=== PATIENT | male | born 1945 | race African-American/Black ===

== ENCOUNTER → 2016-08-13 | Outpatient (CLI) | payer MEDICARE, OTHER ==
[~2016-08-13] MED LIST: ADVAI100I PO; AMLO5TAB22 PO; ATOR40TA49 PO; AZIT250T43 PO; DUONI NEB; HYDR25TA35 PO; IPRAAER IN; PRED20 PO; SYMB160A INH; UMEC1AER INH; VENTAER INH
[2016-08-13 11:02] LABS: AUTOMATED NEUTROPHIL # 7.8 TH/MM3 (1.8-7.7); BASOPHIL % 0.3 % (0.0-2.0); EOSINOPHIL # 0.1 TH/MM3 (0-0.4); HEMATOCRIT 47.6 % (39.0-51.0); LYMPH % 13.8 % (9.0-44.0); LYMPHOCYTE # 1.4 TH/MM3 (1.0-4.8); MEAN CELL VOLUME 73.1 FL (80.0-100.0); MEAN CORPUSCULAR HEMOGLOBIN 22.5 PG (27.0-34.0); MEAN CORPUSCULAR HGB CONC 30.8 % (32.0-36.0); MONO % 8.9 % (0.0-8.0); PLATELET COUNT 145 TH/MM3 (150-450); RED BLOOD COUNT 6.51 MIL/MM3 (4.50-5.90); RED CELL DISTRIBUTION WIDTH 15.8 % (11.6-17.2); WHITE BLOOD COUNT 10.3 TH/MM3 (4.0-11.0)
[2016-08-13 11:07] LABS: HEMO FLAGS AUTO DIFF
[2016-08-13 11:52] LABS: EOSINOPHILS 1 % (0-4); NEUTROPHIL # MANUAL DIFF 8.3 TH/MM3 (1.8-7.7); POLYS (SEG NEUTROPHILS) 81 % (16-70); WBC DIFF SAMPLE 100
[2016-08-13 11:53] LABS: PLATELET ESTIMATE SMEAR LOW (NORMAL); PLATELET MORPHOLOGY NORMAL (NORMAL); SCAN/DIFF FINAL DIFF MANUAL
[2016-08-13 11:59] LABS: ALKALINE PHOSPHATASE 94 U/L (45-117); ALT (GPT) 28 U/L (12-78); ANION GAP 5 MEQ/L (5-15); AST (GOT) 17 U/L (15-37); BICARBONATE 30.7 MEQ/L (21.0-32.0); BLOOD UREA NITROGEN 16 MG/DL (7-18); CHLORIDE 108 MEQ/L (98-107); GLOMERULAR FILTRATION RATE 57 ML/MIN (>89); GLUCOSE,FASTING 108 MG/DL (74-99); HDL CHOLESTEROL 29.8 MG/DL (40.0-60.0); LDL CHOLESTEROL 18 MG/DL (0-99); SODIUM (NA) 144 MEQ/L (136-145); TOTAL BILIRUBIN ADULT 0.4 MG/DL (0.2-1.0)
== END ==
LOC: CLAB 10:31
PROVIDERS: ATTEND Internal Medicine Cardiovascular Disease
DX: E78.5 Hyperlipidemia, unspecified (principal); Z01.01 Encounter for examination of eyes and vision with abnormal findings; E78.00 Pure hypercholesterolemia, unspecified; D51.9 Vitamin B12 deficiency anemia, unspecified; D52.9 Folate deficiency anemia, unspecified
CPT/HCPCS: 36415; 80053; 80061; 82607; 82746; 85007; 85027

== ENCOUNTER → 2016-09-13 | Outpatient (CLI) | payer MEDICARE, OTHER ==
[2016-09-13 09:12] LABS: BICARBONATE 32.1 MEQ/L (21.0-32.0); POTASSIUM 3.8 MEQ/L (3.5-5.1)
== END ==
LOC: CLAB 08:21
PROVIDERS: ATTEND Family Medicine
DX: R73.09 Other abnormal glucose (principal); Z79.891 Long term (current) use of opiate analgesic
CPT/HCPCS: 36415; 80048

== ENCOUNTER → 2016-11-09 | Outpatient (CLI) | payer MEDICARE, OTHER ==
[2016-11-09 08:12] LABS: ALT (GPT) 22 U/L (12-78)
[2016-11-09 08:14] LABS: ALKALINE PHOSPHATASE 74 U/L (45-117); HDL CHOLESTEROL 27.3 MG/DL (40.0-60.0); LDL CHOLESTEROL 28 MG/DL (0-99); TOTAL BILIRUBIN ADULT 0.5 MG/DL (0.2-1.0)
[2016-11-09 08:45] LABS: ANION GAP 9 MEQ/L (5-15); AST (GOT) 18 U/L (15-37); BICARBONATE 26.3 MEQ/L (21.0-32.0); BLOOD UREA NITROGEN 10 MG/DL (7-18); CHLORIDE 109 MEQ/L (98-107); GLOMERULAR FILTRATION RATE 64 ML/MIN (>89); GLUCOSE,FASTING 103 MG/DL (74-99); POTASSIUM 3.7 MEQ/L (3.5-5.1); SODIUM (NA) 144 MEQ/L (136-145)
== END ==
LOC: CLAB 07:27
PROVIDERS: ATTEND Family Medicine
DX: E78.5 Hyperlipidemia, unspecified (principal); E78.00 Pure hypercholesterolemia, unspecified; Z01.00 Encounter for examination of eyes and vision without abnormal findings; Z79.891 Long term (current) use of opiate analgesic
CPT/HCPCS: 36415; 80053; 80061

== ENCOUNTER → 2017-01-07 | Outpatient (CLI) | payer MEDICARE, OTHER ==
[2017-01-07 15:09] LABS: AUTOMATED NEUTROPHIL # 7.5 TH/MM3 (1.8-7.7); BASOPHIL % 0.2 % (0.0-2.0); EOSINOPHIL % 0.3 % (0.0-4.0); HEMATOCRIT 49.2 % (39.0-51.0); HEMO FLAGS DIFF FINAL; LYMPH % 11.4 % (9.0-44.0); LYMPHOCYTE # 1.1 TH/MM3 (1.0-4.8); MEAN CELL VOLUME 73.4 FL (80.0-100.0); MEAN CORPUSCULAR HEMOGLOBIN 23.3 PG (27.0-34.0); MEAN CORPUSCULAR HGB CONC 31.8 % (32.0-36.0); MONO % 9.8 % (0.0-8.0); NEUT % 78.3 % (16.0-70.0); PLATELET COUNT 165 TH/MM3 (150-450); RED BLOOD COUNT 6.71 MIL/MM3 (4.50-5.90); RED CELL DISTRIBUTION WIDTH 17.1 % (11.6-17.2); WHITE BLOOD COUNT 9.6 TH/MM3 (4.0-11.0)
[2017-01-07 15:26] LABS: ANION GAP 10 MEQ/L (5-15); AST (GOT) 15 U/L (15-37); BICARBONATE 26.6 MEQ/L (21.0-32.0); BLOOD UREA NITROGEN 34 MG/DL (7-18); CHLORIDE 103 MEQ/L (98-107); GLOMERULAR FILTRATION RATE 46 ML/MIN (>89); GLUCOSE,FASTING 131 MG/DL (74-99); POTASSIUM 3.9 MEQ/L (3.5-5.1); SODIUM (NA) 140 MEQ/L (136-145)
[2017-01-07 15:28] LABS: RHEUMATOID FACTOR TRIGGER LESS THAN 10.0 IU/ML (0.0-14.9)
[2017-01-07 15:50] LABS: WESTERGREN SEDIMENTATION RATE 1 mm/hr (0-20)
[2017-01-07 15:51] LABS: ALKALINE PHOSPHATASE 86 U/L (45-117); ALT (GPT) 33 U/L (12-78); CREATINE KINASE 165 U/L (39-308); HDL CHOLESTEROL 35.1 MG/DL (40.0-60.0); LDL CHOLESTEROL 50 MG/DL (0-99); TOTAL BILIRUBIN ADULT 0.5 MG/DL (0.2-1.0)
[2017-01-07 17:29] LABS: HEMOGLOBIN A1a 1.7 %; HEMOGLOBIN Ao 83.2 %; HEMOGLOBIN F 1.1 %; HEMOGLOBIN LA1C 2.2 %; HEMOGLOBIN P3 4.1 %
== END ==
LOC: CLAB 14:28
PROVIDERS: ATTEND Family Medicine
DX: E78.5 Hyperlipidemia, unspecified (principal); E78.00 Pure hypercholesterolemia, unspecified; D52.9 Folate deficiency anemia, unspecified; E03.9 Hypothyroidism, unspecified; D56.5 Hemoglobin E-beta thalassemia; E11.9 Type 2 diabetes mellitus without complications; Z79.891 Long term (current) use of opiate analgesic; Z01.01 Encounter for examination of eyes and vision with abnormal findings
CPT/HCPCS: 36415; 80053; 80061; 82550; 82607; 82746; 83036; 84443; 85025; 85652; 86430

== ENCOUNTER → 2017-01-20 | Outpatient (CLI) | payer MEDICARE, MEDICAID ==
[2017-01-20 11:54] LABS: BICARBONATE 28.2 MEQ/L (21.0-32.0); POTASSIUM 4.1 MEQ/L (3.5-5.1)
== END ==
LOC: CLAB 10:40
PROVIDERS: ATTEND Family Medicine
DX: R73.09 Other abnormal glucose (principal); N19 Unspecified kidney failure; Z79.891 Long term (current) use of opiate analgesic
CPT/HCPCS: 36415; 80048

== ENCOUNTER → 2017-03-31 | Outpatient (CLI) | payer MEDICARE, MEDICAID ==
[2017-03-31 10:31] LABS: ALBUMIN 3.8 GM/DL (3.4-5.0); BICARBONATE 27.3 MEQ/L (21.0-32.0); BLOOD UREA NITROGEN 17 MG/DL (7-18); CALCIUM 8.9 MG/DL (8.5-10.1); CHLORIDE 104 MEQ/L (98-107); CHOLESTEROL 86 MG/DL (120-200); CREATININE 1.37 MG/DL (0.60-1.30); GLOMERULAR FILTRATION RATE 62 ML/MIN (>89); GLUCOSE,FASTING 86 MG/DL (74-99); SODIUM (NA) 141 MEQ/L (136-145)
[2017-03-31 10:46] LABS: ALKALINE PHOSPHATASE 72 U/L (45-117); ALT (GPT) 26 U/L (12-78); AST (GOT) 20 U/L (15-37); CHOLESTEROL/ HDL RATIO 2.73 RATIO; HDL CHOLESTEROL 31.5 MG/DL (40.0-60.0); LDL CHOLESTEROL 35 MG/DL (0-99); TOTAL BILIRUBIN ADULT 0.5 MG/DL (0.2-1.0); TOTAL PROTEIN 7.8 GM/DL (6.4-8.2); TRIGLYCERIDES 98 MG/DL (42-150)
== END ==
LOC: CLAB 08:27
PROVIDERS: ATTEND Family Medicine
DX: E78.00 Pure hypercholesterolemia, unspecified (principal); I10 Essential (primary) hypertension; E78.5 Hyperlipidemia, unspecified; E11.9 Type 2 diabetes mellitus without complications; Z79.891 Long term (current) use of opiate analgesic
CPT/HCPCS: 36415; 80053; 80061

== ENCOUNTER → 2017-05-24 | Outpatient (CLI) | payer MEDICARE, MEDICAID ==
[2017-05-24 08:38] LABS: AUTOMATED NEUTROPHIL # 3.5 TH/MM3 (1.8-7.7); BASOPHIL % 0.5 % (0.0-2.0); EOSINOPHIL % 4.2 % (0.0-4.0); HEMATOCRIT 48.2 % (39.0-51.0); HEMO FLAGS DIFF FINAL; LYMPH % 21.3 % (9.0-44.0); LYMPHOCYTE # 1.2 TH/MM3 (1.0-4.8); MEAN CELL VOLUME 74.3 FL (80.0-100.0); MEAN CORPUSCULAR HEMOGLOBIN 24.1 PG (27.0-34.0); MEAN CORPUSCULAR HGB CONC 32.4 % (32.0-36.0); MONO % 13.8 % (0.0-8.0); NEUT % 60.2 % (16.0-70.0); PLATELET COUNT 197 TH/MM3 (150-450); RED BLOOD COUNT 6.48 MIL/MM3 (4.50-5.90); RED CELL DISTRIBUTION WIDTH 15.7 % (11.6-17.2); WHITE BLOOD COUNT 5.8 TH/MM3 (4.0-11.0)
[2017-05-24 08:39] LABS: EOSINOPHIL # 0.2 TH/MM3 (0-0.4)
[2017-05-24 09:02] LABS: ALT (GPT) 20 U/L (12-78)
[2017-05-24 09:04] LABS: ALKALINE PHOSPHATASE 75 U/L (45-117); ANION GAP 10 MEQ/L (5-15); AST (GOT) 28 U/L (15-37); BICARBONATE 29.5 MEQ/L (21.0-32.0); BLOOD UREA NITROGEN 22 MG/DL (7-18); CHLORIDE 101 MEQ/L (98-107); GLOMERULAR FILTRATION RATE 38 ML/MIN (>89); GLUCOSE,FASTING 145 MG/DL (74-99); LDL CHOLESTEROL 27 MG/DL (0-99); SODIUM (NA) 140 MEQ/L (136-145); TOTAL BILIRUBIN ADULT 0.8 MG/DL (0.2-1.0)
[2017-05-24 09:05] LABS: POTASSIUM 3.6 MEQ/L (3.5-5.1)
== END ==
LOC: CLAB 07:52
PROVIDERS: ATTEND Family Medicine
DX: D64.9 Anemia, unspecified (principal); I10 Essential (primary) hypertension; E78.5 Hyperlipidemia, unspecified; Z12.5 Encounter for screening for malignant neoplasm of prostate
CPT/HCPCS: 36415; 80053; 80061; 84153; 85025

== ENCOUNTER → 2017-05-27 | Outpatient (CLI) | payer MEDICARE, MEDICAID ==
[2017-05-27 10:49] LABS: BICARBONATE 30.3 MEQ/L (21.0-32.0); BLOOD UREA NITROGEN 18 MG/DL (7-18); CALCIUM 9.7 MG/DL (8.5-10.1); CHLORIDE 102 MEQ/L (98-107); CREATININE 1.96 MG/DL (0.60-1.30); GLOMERULAR FILTRATION RATE 41 ML/MIN (>89); GLUCOSE,FASTING 141 MG/DL (74-99); SODIUM (NA) 141 MEQ/L (136-145)
== END ==
LOC: CLAB 09:47
PROVIDERS: ATTEND Family Medicine
DX: I12.9 Hypertensive chronic kidney disease with stage 1 through stage 4 chronic kidney disease, or unspecified chronic kidney disease (principal); N18.9 Chronic kidney disease, unspecified; D56.5 Hemoglobin E-beta thalassemia; Z79.891 Long term (current) use of opiate analgesic; Z12.5 Encounter for screening for malignant neoplasm of prostate
CPT/HCPCS: 36415; 80048; 83036; 84153

== ENCOUNTER → 2017-06-02 | Outpatient (CLI) | payer MEDICARE, MEDICAID ==
[2017-06-02 10:31] LABS: AUTOMATED NEUTROPHIL # 9.7 TH/MM3 (1.8-7.7); BASOPHIL % 0.3 % (0.0-2.0); EOSINOPHIL # 0.1 TH/MM3 (0-0.4); EOSINOPHIL % 0.4 % (0.0-4.0); HEMATOCRIT 45.3 % (39.0-51.0); HEMOGLOBIN 14.6 GM/DL (13.0-17.0); LYMPH % 9.5 % (9.0-44.0); LYMPHOCYTE # 1.2 TH/MM3 (1.0-4.8); MEAN CELL VOLUME 74.5 FL (80.0-100.0); MEAN CORPUSCULAR HGB CONC 32.2 % (32.0-36.0); MEAN PLATELET VOLUME 7.9 FL (7.0-11.0); MONO % 11.7 % (0.0-8.0); MONOCYTE # 1.5 TH/MM3 (0-0.9); NEUT % 78.1 % (16.0-70.0); PLATELET COUNT 276 TH/MM3 (150-450); RED BLOOD COUNT 6.08 MIL/MM3 (4.50-5.90); RED CELL DISTRIBUTION WIDTH 15.7 % (11.6-17.2); WHITE BLOOD COUNT 12.5 TH/MM3 (4.0-11.0)
[2017-06-02 10:38] LABS: ALBUMIN 3.3 GM/DL (3.4-5.0); AST (GOT) 29 U/L (15-37); BLOOD UREA NITROGEN 20 MG/DL (7-18); CALCIUM 9.8 MG/DL (8.5-10.1); CHLORIDE 101 MEQ/L (98-107); CREATININE 1.74 MG/DL (0.60-1.30); GLOMERULAR FILTRATION RATE 47 ML/MIN (>89); GLUCOSE,FASTING 116 MG/DL (74-99); SODIUM (NA) 142 MEQ/L (136-145)
[2017-06-02 10:44] LABS: ALKALINE PHOSPHATASE 73 U/L (45-117); ALT (GPT) 39 U/L (12-78); TOTAL BILIRUBIN ADULT 0.2 MG/DL (0.2-1.0); TOTAL PROTEIN 7.1 GM/DL (6.4-8.2)
== END ==
LOC: CLAB 09:32
PROVIDERS: ATTEND Family Medicine
DX: R79.89 Other specified abnormal findings of blood chemistry (principal); D64.9 Anemia, unspecified; I10 Essential (primary) hypertension; Z79.01 Long term (current) use of anticoagulants; Z79.891 Long term (current) use of opiate analgesic; Z12.11 Encounter for screening for malignant neoplasm of colon
CPT/HCPCS: 36415; 80053; 82272; 85025

== ENCOUNTER → 2017-07-11 | Outpatient (CLI) | payer MEDICARE, MEDICAID ==
[2017-07-11 08:52] LABS: ALBUMIN 3.7 GM/DL (3.4-5.0); AST (GOT) 20 U/L (15-37); BICARBONATE 29.8 MEQ/L (21.0-32.0); BLOOD UREA NITROGEN 18 MG/DL (7-18); CALCIUM 9.3 MG/DL (8.5-10.1); CHLORIDE 102 MEQ/L (98-107); CREATININE 1.74 MG/DL (0.60-1.30); GLOMERULAR FILTRATION RATE 47 ML/MIN (>89); SODIUM (NA) 140 MEQ/L (136-145)
[2017-07-11 08:53] LABS: GLUCOSE,FASTING 94 MG/DL (74-99)
[2017-07-11 08:56] LABS: ALKALINE PHOSPHATASE 77 U/L (45-117); ALT (GPT) 18 U/L (12-78); TOTAL BILIRUBIN ADULT 0.6 MG/DL (0.2-1.0)
== END ==
LOC: CLAB 08:07
PROVIDERS: ATTEND Internal Medicine Gastroenterology
DX: R10.9 Unspecified abdominal pain (principal)
CPT/HCPCS: 36415; 80053

== ENCOUNTER → 2017-07-19 | Outpatient (CLI) | payer MEDICARE, MEDICAID ==
[~2017-07-19] MED LIST changes: +ADVA100A INH; +AMLO5 PO; +ASPI-183 PO; +HYDR-3799 PO; +LIPI40TA PO; +MEDR4PAK PO
[2017-07-19 08:25] LABS: ALBUMIN 3.8 GM/DL (3.4-5.0); AST (GOT) 16 U/L (15-37); BICARBONATE 30.4 MEQ/L (21.0-32.0); BLOOD UREA NITROGEN 12 MG/DL (7-18); CALCIUM 9.2 MG/DL (8.5-10.1); CHLORIDE 104 MEQ/L (98-107); CHOLESTEROL 81 MG/DL (120-200); CREATININE 1.54 MG/DL (0.60-1.30); GLOMERULAR FILTRATION RATE 54 ML/MIN (>89); GLUCOSE,FASTING 101 MG/DL (74-99); SODIUM (NA) 141 MEQ/L (136-145)
[2017-07-19 08:30] LABS: ALKALINE PHOSPHATASE 88 U/L (45-117); ALT (GPT) 17 U/L (12-78); HDL CHOLESTEROL 28.9 MG/DL (40.0-60.0); LDL CHOLESTEROL 25 MG/DL (0-99); TOTAL BILIRUBIN ADULT 0.5 MG/DL (0.2-1.0); TOTAL PROTEIN 8.4 GM/DL (6.4-8.2); TRIGLYCERIDES 137 MG/DL (42-150); TROPONIN I LESS THAN 0.02 NG/ML (0.02-0.05)
== END ==
LOC: CLAB 07:40
PROVIDERS: ATTEND Family Medicine
DX: R10.84 Generalized abdominal pain (principal); I10 Essential (primary) hypertension; G89.4 Chronic pain syndrome; Z79.891 Long term (current) use of opiate analgesic
CPT/HCPCS: 36415; 80053; 80061; 84484

== ENCOUNTER 2017-07-21 16:22 | Emergency (ER) | payer MEDICARE, MEDICAID ==
[~2017-07-21] VITALS: Ht 185.4 cm; Wt 85.0 kg
[~2017-07-21 16:22] MED LIST changes: -ADVA100A INH; -AMLO5 PO; -ASPI-183 PO; -HYDR-3799 PO; -LIPI40TA PO; -MEDR4PAK PO
[2017-07-21 16:24] VITALS: BP 149/94; PULSE 97; RESP 20; TEMP 100.5; O2SAT 95
--- NOTE | 2017-07-21 17:15 | RADRPT ---
EXAM DATE/TIME: 07/21/2017 17:07 [place] COMPARISON: CHEST SINGLE AP, March 29, 2015, 15:09. INDICATIONS : Cough and flu like symptoms for 1 week. MEDICAL HISTORY : Hypertension. Chronic obstructive pulmonary disease. Carcinoma, prostatic. CVA. SURGICAL HISTORY : Cardiac cath. ENCOUNTER: Initial ACUITY: 1 week PAIN SCORE: 0/10 LOCATION: Bilateral chest FINDINGS: PA and lateral views of the chest demonstrate the lungs to be symmetrically aerated without evidence of mass, infiltrate or effusion. Mild prominence of the bronchopulmonary markings in the posterior l eft lower lung is unchanged from prior examination in 2014. The cardiomediastinal contours are unrem arkable. Osseous structures are intact. CONCLUSION: No focal infiltrates seen. Duane Fuentes MD on July 21, 2017 at 17:13 Board Certified Radiologist. This report was verified electronically.
[2017-07-22] MEDS ORDERED: ADVA100A INH (08:29)
[2017-07-22] MEDS ORDERED: VENTAER INH (08:29)
[2017-07-22] MEDS ORDERED: HYDR-3799 PO (08:29)
[2017-07-22] MEDS ORDERED: ASPI-183 PO (08:29)
[2017-07-22] MEDS ORDERED: AMLO5 PO (08:29)
[2017-07-22] MEDS ORDERED: UMEC1AER INH (08:29)
[2017-07-22] MEDS ORDERED: LIPI40TA PO (08:29)
[2017-07-22] MEDS ORDERED: MEDR4PAK PO (10:19)
== END 2017-07-21 17:20 | disposition left against medical advice (07) ==
LOC: NED 16:22
DX: R09.89 Other specified symptoms and signs involving the circulatory and respiratory systems (principal)
CPT/HCPCS: 71046; 99283

== ENCOUNTER 2017-07-22 07:39 | Emergency (ER) | payer MEDICARE, MEDICAID ==
[~2017-07-22] VITALS: Ht 185.4 cm; Wt 81.5 kg
[2017-07-22 07:44] VITALS: BP 148/113; PULSE 108; RESP 22; TEMP 98.7; O2SAT 98
[2017-07-22] MEDS ORDERED: methylPREDNISolone SOD SUCC 125 MG/2 ML VIAL IV PUSH ONE (08:00)
[2017-07-22] MEDS ORDERED: SODIUM CHLOR 0.9% 1000 ML INJ 1,000 ML IV ONE (08:00)
[2017-07-22] MEDS ORDERED: RESP: ALBUTEROL 2.5 MG/IPRATROPIUM 0.5 MG NEB (SCH) INH ONE (08:00)
[2017-07-22] MEDS ORDERED: SODIUM CHLORIDE 0.9% FLUSH 10 ML FLUSH IVF PRN (08:00)
[2017-07-22] MEDS: RESP: ALBUTEROL 2.5 MG/3 ML NEB (SCH) INH (08:12)
[2017-07-22 08:25] VITALS: RESP 18; O2SAT 98
[2017-07-22] MEDS ORDERED: ASPI-183 PO (08:29)
[2017-07-22] MEDS ORDERED: LIPI40TA PO (08:29)
[2017-07-22] MEDS ORDERED: AMLO5 PO (08:29)
[2017-07-22] MEDS ORDERED: HYDR-3799 PO (08:29)
[2017-07-22] MEDS ORDERED: VENTAER INH (08:29)
[2017-07-22] MEDS ORDERED: ADVA100A INH (08:29)
[2017-07-22] MEDS ORDERED: UMEC1AER INH (08:29)
--- NOTE | 2017-07-22 08:37 | PD ---
HPI Chief Complaint: Respiratory Symptoms Time Seen by Provider: 07:59 Travel History International Travel<30 days: No Contact w/Intl Traveler<30days: No Traveled to known affect area: No History of Present Illness HPI 72 there are no other complaints at the time of my examination.-year-old male with history of COPD, presents today with complaints of shortness of breath decreased appetite. Patient denies any fevers, chills. He states he had a chest x-ray yesterday because there was concern that he may have had a long finding. He denies any productive cough. He denies chest pain, chest pressure. He states that he has had wheezing. PFSH Past Medical History Cancer: Yes (prostate) Cardiac Catheterization: Yes (stent) Cardiovascular Problems: Yes High Cholesterol: Yes COPD: Yes Cerebrovascular Accident: Yes Hypertension: Yes Respiratory: Yes Radiation Therapy: Yes Social History Alcohol Use: No Tobacco Use: No Substance Use: No Allergies-Medications (Allergen,Severity, Reaction): Coded Allergies: No Known Allergies (Unverified , 03/29/15) Reported Meds & Prescriptions Reported Meds & Active Scripts Active Medrol Dosepak (Methylprednisolone) 4 Mg Dspk 4 Mg PO DIRECTED Per Pharmacist direction Reported Aspirin 325 Mg Tab 325 Mg PO DAILY Anoro Ellipta Inh (Umeclidinium/Vilanterol) 62.5-25 Mcg/Act Aero 1 Puff INH DAILY Hydralazine HCl 25 Mg Tablet 25 Mg PO BID Advair Diskus Inh (Fluticasone-Salmeterol Inh) 100-50 Mcg/Blist Aer 1 Puff INH BID Rinse mouth after use. Lipitor (Atorvastatin Calcium) 40 Mg Tab 40 Mg PO HS Norvasc (Amlodipine Besylate) 5 Mg Tab 5 Mg PO DAILY Ventolin Hfa 18 GM Inh (Albuterol Sulfate) 90 Mcg/Act Aer 2 Puff INH Q4-6H PRN Review of Systems Except as stated in HPI: all other systems reviewed are Neg General / Constitutional: No: Fever, Chills HENT: No: Headaches, Lightheadedness, Neck Pain Cardiovascular: No: Chest Pain or Discomfort, Palpitations Respiratory: Positive: Shortness of Breath, Wheezing, No: Cough Gastrointestinal: Positive: Loss of Appetite, No: Nausea, Vomiting, Abdominal Pain Genitourinary: No: Frequency, Dysuria Musculoskeletal: No: Weakness, Pain Neurologic: No: Weakness, Dizziness, Headache Physical Exam Narrative GENERAL: Well-developed well-nourished male in no acute respiratory distress. SKIN: Focused skin assessment warm/dry. HEAD: Atraumatic. Normocephalic. EYES:No scleral icterus. No injection or drainage. ENT: No nasal bleeding or discharge. Mucous membranes pink and moist. NECK: Trachea midline. Supple. CARDIOVASCULAR: Regular rate and rhythm. No murmur appreciated. RESPIRATORY: Bilateral expiratory wheezes in the lower lung clarke. No rales appreciated. GASTROINTESTINAL: Abdomen soft, non-tender, nondistended. Hepatic and splenic margins not palpable. MUSCULOSKELETAL: No obvious deformities. No clubbing. No cyanosis. No edema. NEUROLOGICAL: Awake and alert. No obvious cranial nerve deficits. Motor grossly within normal limits. Normal speech. PSYCHIATRIC: Appropriate mood and affect; insight and judgment normal. Data Data Last Documented VS Vital Signs Date Time Temp Pulse Resp B/P (MAP) Pulse Ox O2 Delivery O2 Flow Rate FiO2 07/22/17 08:36 84 18 98 Room Air 07/22/17 08:25 07/22/17 07:44 98.7 Orders Orders Basic Metabolic Panel (Bmp) (07/22/17 08:00) Iv Access Insert/Monitor (07/22/17 08:00) Ecg Monitoring (07/22/17 08:00) Oximetry (07/22/17 08:00) Oxygen Administration (07/22/17 08:00) Sodium Chloride 0.9% Flush (Ns Flush) (07/22/17 08:00) Methylprednisolone So Succ Inj (Solumedr (07/22/17 08:00) Albuterol-Ipratropium Neb (Duoneb Neb) (07/22/17 08:00) Albuterol Neb (Albuterol Neb) (07/22/17 08:00) Sodium Chlor 0.9% 1000 Ml Inj (Ns 1000 M (07/22/17 08:00) Potassium Chloride (Kcl) (07/22/17 10:30) Labs Laboratory Tests Test 07/22/17 08:22 Blood Urea Nitrogen 22 MG/DL Creatinine 1.70 MG/DL Random Glucose 144 MG/DL Calcium Level 9.0 MG/DL Sodium Level 139 MEQ/L Potassium Level 3.2 MEQ/L Chloride Level 105 MEQ/L Carbon Dioxide Level 25.2 MEQ/L Anion Gap 9 MEQ/L Estimat Glomerular Filtration Rate 49 ML/MIN MDM Medical Decision Making Medical Screen Exam Complete: Yes Emergency Medical Condition: Yes Differential Diagnosis COPD exacerbation versus pneumonia versus bronchitis versus dehydration Narrative Course 72-year-old male with history COPD, presents today with complaints of shortness of breath and wheezing. Patient also states that he has had decreased appetite. The patient looks a little volume depleted on examination. He has been given 500 cc bolus of fluid. He has been given 3 nebulizer treatments in the 125 mg Solu-Medrol. On reexamination at 1015, the patient has no wheezing.. He states he wants to go home. He will be discharged with a prescription for Medrol Dosepak. At this time I do not believe he needs antibiotics. His creatinine was 1.7 which is at his baseline. His potassium was 3.2 and he has been given 20 mEq of potassium replacement 1 dose. He will be instructed to increase his potassium rich diet. He is instructed to return to be develops any worsening symptoms. Diagnosis Primary Impression: COPD exacerbation Additional Impressions: Mild volume depletion Mild hypokalemia Additional Instructions: Increase your potassium rich diet: Green leafy vegetables, bananas, citrus. Make sure you are drinking enough liquids. Return if feeling worse. Scripts Methylprednisolone Dosepak (Medrol Dosepak) 4 Mg Dspk 4 MG PO DIRECTED, #1 DSPK 0 Refills Per Pharmacist direction Prov: Eugene Aguero MD 07/22/17 Disposition: DISCHARGE HOME Condition: Stable Eugene Agureo MD Jul 22, 2017 08:37
[2017-07-22 08:53] LABS: BICARBONATE 25.2 MEQ/L (21.0-32.0); CREATININE 1.7 MG/DL (0.60-1.30)
[2017-07-22] MEDS ORDERED: MEDR4PAK PO (10:19)
[2017-07-22 10:29] VITALS: BP 126/70; PULSE 77; RESP 17; O2SAT 97
[2017-07-22] MEDS ORDERED: POTASSIUM CHLORIDE 20 MEQ CONTROLLED RELEASE TAB PO ONE (10:30)
== END 2017-07-22 10:55 | disposition home or self-care (01) ==
LOC: NEPE 07:39
DX: J44.1 Chronic obstructive pulmonary disease with (acute) exacerbation (principal); E86.9 Volume depletion, unspecified; E87.6 Hypokalemia; E78.00 Pure hypercholesterolemia, unspecified; I10 Essential (primary) hypertension; Z86.73 Personal history of transient ischemic attack (TIA), and cerebral infarction without residual deficits; Z85.46 Personal history of malignant neoplasm of prostate; Z79.51 Long term (current) use of inhaled steroids; Z79.82 Long term (current) use of aspirin
CPT/HCPCS: 80048; 94664; 96374; 99284; J2930; J7030; J7613

== ENCOUNTER → 2017-08-03 | Outpatient (CLI) | payer MEDICARE, MEDICAID ==
[~2017-08-03] MED LIST changes: +ADVA100A INH; -ADVAI100I PO; +AMLO5 PO; -AMLO5TAB22 PO; +ASPI-183 PO; -ATOR40TA49 PO; -AZIT250T43 PO; -DUONI NEB; +HYDR-3799 PO; -HYDR25TA35 PO; -IPRAAER IN; +LIPI40TA PO; +MEDR4PAK PO; -PRED20 PO; -SYMB160A INH
[2017-08-03 07:41] LABS: AUTOMATED NEUTROPHIL # 16.3 TH/MM3 (1.8-7.7); BASOPHIL % 0.1 % (0.0-2.0); HEMATOCRIT 44.3 % (39.0-51.0); HEMOGLOBIN 14.4 GM/DL (13.0-17.0); LYMPH % 4.8 % (9.0-44.0); LYMPHOCYTE # 0.9 TH/MM3 (1.0-4.8); MEAN CELL VOLUME 71.8 FL (80.0-100.0); MEAN CORPUSCULAR HEMOGLOBIN 23.4 PG (27.0-34.0); MEAN CORPUSCULAR HGB CONC 32.6 % (32.0-36.0); MEAN PLATELET VOLUME 7.4 FL (7.0-11.0); MONO % 6.9 % (0.0-8.0); MONOCYTE # 1.3 TH/MM3 (0-0.9); NEUT % 88.2 % (16.0-70.0); PLATELET COUNT 290 TH/MM3 (150-450); RED BLOOD COUNT 6.17 MIL/MM3 (4.50-5.90); RED CELL DISTRIBUTION WIDTH 17.3 % (11.6-17.2); WHITE BLOOD COUNT 18.5 TH/MM3 (4.0-11.0)
[2017-08-03 08:08] LABS: ALBUMIN 3.3 GM/DL (3.4-5.0); ALKALINE PHOSPHATASE 101 U/L (45-117); ALT (GPT) 63 U/L (12-78); AST (GOT) 27 U/L (15-37); BICARBONATE 28.1 MEQ/L (21.0-32.0); BLOOD UREA NITROGEN 24 MG/DL (7-18); CALCIUM 8.9 MG/DL (8.5-10.1); CHLORIDE 106 MEQ/L (98-107); CHOLESTEROL 97 MG/DL (120-200); CHOLESTEROL/ HDL RATIO 2.04 RATIO; CREATININE 1.54 MG/DL (0.60-1.30); GLOMERULAR FILTRATION RATE 54 ML/MIN (>89); GLUCOSE,FASTING 118 MG/DL (74-99); HDL CHOLESTEROL 47.4 MG/DL (40.0-60.0); LDL CHOLESTEROL 27 MG/DL (0-99); SODIUM (NA) 141 MEQ/L (136-145); TOTAL BILIRUBIN ADULT 0.3 MG/DL (0.2-1.0); TOTAL PROTEIN 7.2 GM/DL (6.4-8.2); TRIGLYCERIDES 112 MG/DL (42-150)
[2017-08-03 08:22] LABS: WESTERGREN SEDIMENTATION RATE 1 mm/hr (0-20)
== END ==
LOC: CLAB 07:19
PROVIDERS: ATTEND Family Medicine
DX: Z01.84 Encounter for antibody response examination (principal); E78.00 Pure hypercholesterolemia, unspecified; D64.9 Anemia, unspecified; I10 Essential (primary) hypertension; E78.5 Hyperlipidemia, unspecified; Z79.891 Long term (current) use of opiate analgesic
CPT/HCPCS: 36415; 80053; 80061; 85025; 85652

== ENCOUNTER → 2017-08-24 | Day surgery (SDC) | payer MEDICARE, MEDICAID ==
[~2017-08-24] MED LIST changes: +ACETAMINOPHEN 1000 MG/100 ML 100 ML IV ONE; +LACTATED RINGER'S 1000 ML INJ 1,000 ML ONE; +LIDOCAINE 1%/EPINEPHrine 1:100,000 SOLN 30 ML VIAL ONE; +MIDAZOLAM HCL 2 MG/2 ML VIAL ONE; +ONDANSETRON HCL 4 MG/2 ML VIAL IV PUSH ONE; +PROPOFOL 200 MG/20 ML AMP IV ONE
--- NOTE | 2017-08-24 10:14 | TN ---
cc: Costa Cavazos MD, Joseph D MD DATE OF SURGERY: 08/24/2017 PREOPERATIVE DIAGNOSES: Headaches with visual changes, right side. POSTOPERATIVE DIAGNOSES: Headaches with visual changes, right side. PROCEDURE: Temporal artery biopsy. ANESTHESIA: TIVA. SURGEON: Costa Cavazos MD. INDICATIONS FOR PROCEDURE: This is a pleasant gentleman who was sent to me by his program host and his primary care physician. He had complained of some visual changes and headaches. Plans were made for above. PROCEDURE IN DETAIL: The patient was taken to the operating room, placed on the operating room table. After anesthesia, his right jehovah's witness area was prepped with Betadine. Time-out was done. We attempted to identify the temporal artery just anterior to the ear; however, I cannot get a waveform that is of any significance. I go up a little bit more superior to the temporal artery right at the hairline. He has a booming pulse here and a very dilated artery. It is identified with the Doppler. We then anesthetized the area with the Marcaine solution. We made an incision just at the hairline, dissect down identifying the temporal artery and ligated it proximally and distally with a Vicryl suture and the specimen was sent down for pathology. The deep area was then closed with a 4-0 Vicryl and the skin was closed with a 4-0 Vicryl. Steri-Strips were applied. Sterile bandage applied. The patient tolerated the procedure. He had no immediate postop complications. Costa Cavazos MD JDB/DL , 09:50 AM , 10:13 AM
== END | disposition home or self-care (01) ==
LOC: ESDC 07:23
PROVIDERS: ATTEND Surgery
DX: R51 Headache (principal)
CPT/HCPCS: 00352; 37609; 88305; J0131; J2250; J2405; J3010; J7120; 88304

== ENCOUNTER → 2017-09-14 | Outpatient (CLI) | payer MEDICARE, MEDICAID ==
[~2017-09-14] MED LIST changes: -ACETAMINOPHEN 1000 MG/100 ML 100 ML IV ONE; -LACTATED RINGER'S 1000 ML INJ 1,000 ML ONE; -LIDOCAINE 1%/EPINEPHrine 1:100,000 SOLN 30 ML VIAL ONE; -MIDAZOLAM HCL 2 MG/2 ML VIAL ONE; -ONDANSETRON HCL 4 MG/2 ML VIAL IV PUSH ONE; -PROPOFOL 200 MG/20 ML AMP IV ONE
[2017-09-14 14:15] LABS: AUTOMATED NEUTROPHIL # 4.4 TH/MM3 (1.8-7.7); BASOPHIL % 0.5 % (0.0-2.0); EOSINOPHIL # 0.1 TH/MM3 (0-0.4); EOSINOPHIL % 1.5 % (0.0-4.0); HEMATOCRIT 51.4 % (39.0-51.0); HEMOGLOBIN 16.5 GM/DL (13.0-17.0); LYMPH % 17.2 % (9.0-44.0); LYMPHOCYTE # 1.2 TH/MM3 (1.0-4.8); MEAN CELL VOLUME 73.8 FL (80.0-100.0); MEAN CORPUSCULAR HEMOGLOBIN 23.7 PG (27.0-34.0); MEAN CORPUSCULAR HGB CONC 32.1 % (32.0-36.0); MEAN PLATELET VOLUME 8.5 FL (7.0-11.0); MONO % 17.6 % (0.0-8.0); MONOCYTE # 1.2 TH/MM3 (0-0.9); NEUT % 63.2 % (16.0-70.0); PLATELET COUNT 167 TH/MM3 (150-450); RED BLOOD COUNT 6.96 MIL/MM3 (4.50-5.90); RED CELL DISTRIBUTION WIDTH 19.8 % (11.6-17.2); WHITE BLOOD COUNT 6.9 TH/MM3 (4.0-11.0)
[2017-09-14 14:42] LABS: ALKALINE PHOSPHATASE 75 U/L (45-117); HDL CHOLESTEROL 31.5 MG/DL (40.0-60.0); TOTAL PROTEIN 8.2 GM/DL (6.4-8.2); TRIGLYCERIDES 129 MG/DL (42-150)
[2017-09-14 14:46] LABS: ALBUMIN 3.5 GM/DL (3.4-5.0); ALT (GPT) 36 U/L (12-78); AST (GOT) 31 U/L (15-37); BICARBONATE 31.2 MEQ/L (21.0-32.0); BLOOD UREA NITROGEN 13 MG/DL (7-18); CALCIUM 8.8 MG/DL (8.5-10.1); CHLORIDE 101 MEQ/L (98-107); CHOLESTEROL 96 MG/DL (120-200); CHOLESTEROL/ HDL RATIO 3.04 RATIO; CREATININE 1.64 MG/DL (0.60-1.30); GLOMERULAR FILTRATION RATE 51 ML/MIN (>89); GLUCOSE,FASTING 103 MG/DL (74-99); LDL CHOLESTEROL 39 MG/DL (0-99); SODIUM (NA) 140 MEQ/L (136-145)
== END ==
LOC: CLAB 13:56
PROVIDERS: ATTEND Family Medicine
DX: I10 Essential (primary) hypertension (principal); E78.5 Hyperlipidemia, unspecified; D64.9 Anemia, unspecified; Z79.891 Long term (current) use of opiate analgesic
CPT/HCPCS: 36415; 80053; 80061; 85025

== ENCOUNTER → 2017-11-10 | Outpatient (CLI) | payer MEDICARE, MEDICAID ==
[2017-11-10 08:48] LABS: BASOPHIL % 0.3 % (0.0-2.0); EOSINOPHIL % 0.3 % (0.0-4.0); HEMATOCRIT 50.5 % (39.0-51.0); LYMPH % 11.8 % (9.0-44.0); MEAN CELL VOLUME 73.9 FL (80.0-100.0); MEAN CORPUSCULAR HEMOGLOBIN 23.3 PG (27.0-34.0); MEAN CORPUSCULAR HGB CONC 31.6 % (32.0-36.0); MEAN PLATELET VOLUME 8.6 FL (7.0-11.0); MONO % 9.4 % (0.0-8.0); MONOCYTE # 0.8 TH/MM3 (0-0.9); NEUT % 78.2 % (16.0-70.0); PLATELET COUNT 152 TH/MM3 (150-450); RED BLOOD COUNT 6.84 MIL/MM3 (4.50-5.90); RED CELL DISTRIBUTION WIDTH 17.5 % (11.6-17.2); WHITE BLOOD COUNT 8.9 TH/MM3 (4.0-11.0)
[2017-11-10 08:55] LABS: PROTHROMBIN TIME - PATIENT 10.5 SEC (9.8-11.6)
[2017-11-10 09:10] LABS: ALBUMIN 3.9 GM/DL (3.4-5.0); AST (GOT) 17 U/L (15-37); BICARBONATE 25.6 MEQ/L (21.0-32.0); BLOOD UREA NITROGEN 15 MG/DL (7-18); CALCIUM 9.4 MG/DL (8.5-10.1); CHLORIDE 105 MEQ/L (98-107); CREATININE 1.56 MG/DL (0.60-1.30); GLOMERULAR FILTRATION RATE 54 ML/MIN (>89); GLUCOSE,FASTING 101 MG/DL (74-99); SODIUM (NA) 143 MEQ/L (136-145)
[2017-11-10 09:11] LABS: ALT (GPT) 25 U/L (12-78); CHOLESTEROL 102 MG/DL (120-200); TRIGLYCERIDES 113 MG/DL (42-150)
[2017-11-10 09:13] LABS: ALKALINE PHOSPHATASE 70 U/L (45-117); HDL CHOLESTEROL 40.7 MG/DL (40.0-60.0); LDL CHOLESTEROL 39 MG/DL (0-99); TOTAL BILIRUBIN ADULT 0.6 MG/DL (0.2-1.0); TOTAL PROTEIN 7.6 GM/DL (6.4-8.2)
== END ==
LOC: CLAB 08:03
PROVIDERS: ATTEND Family Medicine
DX: E78.00 Pure hypercholesterolemia, unspecified (principal); D64.9 Anemia, unspecified; I10 Essential (primary) hypertension; E78.5 Hyperlipidemia, unspecified; Z79.891 Long term (current) use of opiate analgesic
CPT/HCPCS: 36415; 80053; 80061; 85025; 85610; 85730; 87522

== ENCOUNTER 2018-03-05 09:40 | Observation (INO) ==
[2018-03-05] MEDS ORDERED: Morphine Inj 4 MG/ML Vial IV.PUSH ONE (09:46)
--- NOTE | 2018-03-05 09:50 | ED ---
HPI General Chief Complaint: Chest Pain Stated Complaint: Cardiac Time Seen by Provider: 03/05/18 09:46 Source: patient Mode of arrival: ambulatory Limitations: no limitations History of Present Illness MD complaint: Reports chest pain STEMI Alert: No Onset (ago): hour(s) (1) Duration: intermittent Onset: during rest Pain location: Reports substernal Severity: moderate Severity scale (1-10): 6 Quality: Reports heaviness Pain radiation: Reports none Relieving factors: nothing Exacerbating factors: nothing Treatments prior to arrival chest pain: Reports aspirin Related Data Home Medications Medication Instructions Recorded Confirmed albuterol sulfate [ProAir HFA] 2 puff INHALATION Q4-6H PRN 02/11/18 03/05/18 amlodipine 10 mg PO DAILY 02/11/18 03/05/18 aspirin [Aspirin Low Dose] 81 mg PO DAILY 03/05/18 03/05/18 Allergies Allergy/AdvReac Type Severity Reaction Status Date / Time No Known Allergies Allergy NKDA Uncoded 03/05/18 09:47 Review of Systems ROS: all other systems reviewed are negative PMFSH History History Provided By: Patient Medical History Medical History COPD (chronic obstructive pulmonary disease) (Acute) Hypertension (Acute) Social History Social History Substance History: No History of Abuse Smoking Status: Former smoker How Often Do You Have a Drink Containing Alcohol: Never Recent Travel in [facility] within the Last 8 Weeks: No Recent Out of Country Travel within the Last 8 Weeks: No Exam Narrative Exam Narrative: GENERAL: Well-nourished, well-developed patient in no apparent distress. SKIN: Warm and dry. HEAD: Atraumatic. Normocephalic. EYES: Pupils equal and round. No scleral icterus. No injection or drainage. ENT: No nasal bleeding or discharge. Mucous membranes pink and moist. NECK: Trachea midline. No JVD. CARDIOVASCULAR: Irregularly irregular rhythm, tachycardic rate . no rubs or gallops RESPIRATORY: No accessory muscle use. Clear to auscultation. Breath sounds equal bilaterally. GASTROINTESTINAL: Abdomen soft, non-tender, nondistended. No rebound or guarding MUSCULOSKELETAL: Extremities without clubbing, cyanosis, or edema. No obvious deformities. NEUROLOGICAL: Awake and alert. No obvious cranial nerve deficits. Motor grossly within normal limits. Five out of 5 muscle strength in the arms and legs. Normal speech. PSYCHIATRIC: Appropriate mood and affect; insight and judgment normal. Course Initial Documented Vital Signs Pulse Rate 117 H 03/05/18 09:43 Respiratory Rate 18 03/05/18 09:43 Pulse Oximetry 99 03/05/18 09:43 Last Documented Vital Signs Pulse Rate 105 H 03/05/18 11:03 Respiratory Rate 20 03/05/18 11:03 Blood Pressure 137/89 03/05/18 11:03 Pulse Oximetry 98 03/05/18 11:03 Medical Decision Making MDM Narrative Medical Screen Exam Complete: Yes Emergency Medical Condition: Yes Differential Diagnosis Differential Diagnosis: Pneumonia versus PR versus new onset A. fib versus congestive heart failure Medical Records Medical records reviewed: Yes I reviewed the patient's medical records. Lab Data Lab results reviewed: Yes I reviewed the patient's lab results. Result diagrams: 03/05/18 09:54 03/05/18 09:54 Lab Results 03/05/18 03/05/18 03/05/18 Range/Units 09:54 09:54 09:54 WBC 9.0 (4.0-11.0) th/mm3 RBC 7.59 H (4.50-5.90) mil/mm3 Hgb 18.3 H (13.0-17.0) gm/dL Hct 56.7 H (39.0-51.0) % MCV 74.7 L (80.0-100.0) fL MCH 24.1 L (27.0-34.0) pg MCHC 32.2 (32.0-36.0) % RDW 18.0 H (11.6-17.2) % Plt Count 118 L (150-450) th/mm3 MPV 8.5 (7.0-11.0) fL Prelim Diff (Auto) Slide review pending Neut % (Auto) 69.6 (16.0-70.0) % Lymph % (Auto) 14.2 (9.0-44.0) % [place] % (Auto) 15.3 H (0.0-8.0) % Eos % (Auto) 0.6 (0.0-4.0) % Baso % (Auto) 0.3 (0.0-2.0) % Neut # (Auto) 6.2 (1.8-7.7) th/mm3 Lymph # (Auto) 1.3 (1.0-4.8) th/mm3 [place] # (Auto) 1.4 H (0.0-0.9) th/mm3 Eos # (Auto) 0.1 (0.0-0.4) th/mm3 Baso # (Auto) 0.0 (0.0-0.2) th/mm3 WBC Differential Manual diff final Seg Neuts % (Manual) 69 (16-70) % Band Neuts % (Manual) 2 (0-6) % Lymphocytes % (Manual) 17 (9-44) % Monocytes % (Manual) 9 H (0-8) % Eosinophils % (Manual) 1 (0-4) % Myelocytes % (Man) 2 H (0-0) % Abs Neuts (Manual) 6.6 (1.8-7.7) th/mm3 Differential Comment . Platelet Estimate Low L (Normal) Platelet Morphology Normal (Normal) Sodium 141 (136-145) meq/L Potassium 3.8 (3.5-5.1) meq/L Chloride 101 (98-107) meq/L Carbon Dioxide 30.0 (21.0-32.0) meq/L Anion Gap 10 (5-15) meq/L BUN 25 H (7-18) mg/dL Creatinine 1.57 H (0.60-1.30) mg/dL Estimated GFR 53 L (>89) mL/min Random Glucose 55 L (74-106) mg/dL Calcium 8.5 (8.5-10.1) mg/dL Total Bilirubin 0.5 (0.2-1.0) mg/dL AST 35 (15-37) U/L ALT 57 (12-78) U/L Alkaline Phosphatase 84 (45-117) U/L Total Creatine Kinase 196 (39-308) U/L CK-MB (CK-2) 2.6 (0.5-3.6) ng/mL Troponin I Less than 0.02 L (0.02-0.05) ng/mL B-Natriuretic Peptide 172 H (0-100) pg/mL Total Protein 7.0 (6.4-8.2) g/dL Albumin 3.1 L (3.4-5.0) g/dL Lipase 67 L (73-393) U/L Imaging Data Radiologist's impression: Chest CTA 03/05/18 09:46 CONCLUSION: 1. No pulmonary embolus. 2. Mild density in the posterior lower lobes likely related to consolidation or atelectasis. Chest X-Ray 03/05/18 09:46 CONCLUSION: No acute cardiopulmonary process. ECG Data EKG Prior to Arrival: No Attestation: I personally reviewed and interpreted this ECG as follows: Prior ECG tracings: not available for review Interpretation: Irregularly irregular rhythm consistent with atrial fibrillation , nonspecific ST-T wave changes Discharge Plan Discharge Disposition Patient Disposition: 30 Still Patient Discharge Condition Condition: Stable Discharge Details Diagnosis: Atrial fibrillation, new onset, Chest pain, rule out acute myocardial infarction Physicians Team ED Provider: Jeremi Ren Primary Care Provider: Brian Arshad Rxs /Orders / Referrals /Forms Prescriptions: No Action aspirin [Aspirin Low Dose] 81 mg Tablet,Delayed Release (Dr/Ec) 81 mg PO DAILY RF: 0 amlodipine 10 mg Tablet 10 mg PO DAILY RF: 0 albuterol sulfate [ProAir HFA] 90 mcg/actuation Hfa Aerosol Inhaler 2 puff INHALATION Q4-6H PRN (Reason: SOB) RF: 0 Discharge Instructions Patient Printed Instructions: Chest Pain (ED) Status ED Status: Pending Admission
[2018-03-05 10:07] LABS: Baso % (Auto) 0.3 % (0.0-2.0); Eos # (Auto) 0.1 th/mm3 (0.0-0.4); Eos % (Auto) 0.6 % (0.0-4.0); Hematocrit 56.7 % (39.0-51.0); Hemoglobin 18.3 gm/dL (13.0-17.0); Lymph # (Auto) 1.3 th/mm3 (1.0-4.8); Lymph % (Auto) 14.2 % (9.0-44.0); Mean Corpuscular HGB Conc 32.2 % (32.0-36.0); Mean Corpuscular Hemoglobin 24.1 pg (27.0-34.0); Mean Corpuscular Volume 74.7 fL (80.0-100.0); Mean Platelet Volume 8.5 fL (7.0-11.0); Mono # (Auto) 1.4 th/mm3 (0.0-0.9); Mono % (Auto) 15.3 % (0.0-8.0); Neut # (Auto) 6.2 th/mm3 (1.8-7.7); Neut % (Auto) 69.6 % (16.0-70.0); Platelet Count 118 th/mm3 (150-450); Red Blood Count 7.59 mil/mm3 (4.50-5.90)
[2018-03-05 10:48] LABS: Eosinophils 1 % (0-4); Lymphocytes 17 % (9-44); Monocytes 9 % (0-8); Myelocytes 2 % (0-0); Platelet Morphology Normal (Normal)
[2018-03-05 10:52] LABS: Alanine Aminotransferase 57 U/L (12-78); Albumin 3.1 g/dL (3.4-5.0); Alkaline Phosphatase 84 U/L (45-117); Anion Gap 10 meq/L (5-15); Blood Urea Nitrogen 25 mg/dL (7-18); Calcium 8.5 mg/dL (8.5-10.1); Chloride 101 meq/L (98-107); Creatine Kinase 196 U/L (39-308); Glomerular Filtration Rate 53 mL/min (>89); Glucose,Random 55 mg/dL (74-106); Lipase 67 U/L (73-393); Sodium 141 meq/L (136-145)
[2018-03-05 10:53] LABS: Aspartate Aminotransferase 35 U/L (15-37); Potassium 3.8 meq/L (3.5-5.1)
--- NOTE | 2018-03-05 11:01 | XR ---
EXAM DATE: 03/05/2018 9:46 AM EDT AGE/SEX: 73 years / Male INDICATIONS: Mid chest pain and shortness of breath. CLINICAL DATA: This is the patient's initial encounter. Patient reports that signs and symptoms have been present for 1 day and indicates a pain score of 5/10. MEDICAL/SURGICAL HISTORY: Hypertension. Chronic obstructive pulmonary disease. . Cardiac stent . COMPARISON: . FINDINGS: A single AP view of the chest demonstrates the lungs to be symmetrically aerated without evidence of mass, infiltrate or effusion. The cardiomediastinal contours are unremarkable. Osseous structures a re intact. CONCLUSION: No acute cardiopulmonary process. Electronically signed by: Fahad Rios MD 03/05/2018 10:59 AM EDT
[2018-03-05 11:06] LABS: Creatine Kinase MB 2.6 ng/mL (0.5-3.6)
--- NOTE | 2018-03-05 11:35 | CT ---
EXAM DATE: 03/05/2018 11:09 AM EDT AGE/SEX: 73 years / Male INDICATIONS: Chest Pain CLINICAL DATA: This is the patient's initial encounter. Patient reports that signs and symptoms have been present for 1 day and indicates a pain score of 10/10. MEDICAL/SURGICAL HISTORY: Chronic obstructive pulmonary disease. Hypertension. None. RADIATION DOSE: 9.17 CTDI (mGy) COMPARISON: . TECHNIQUE: Volumetric scanning was performed using a multi-row detector CT scanner during bolus infu negin of 65 ml Omnipaque 350 (iohexol) nonionic water-soluble contrast as a single exam dose. The mil[place] a was post processed with a variety of visualization algorithms including full volume maximum intensi ty projection and sliding thin slab reformation. Using automated exposure control and adjustment of t he mA and/or kV according to patient size, radiation dose was kept as low as reasonably achievable to obtain optimal diagnostic quality images. DICOM format image data is available electronically for r eview and comparison. FINDINGS: Pulmonary Arteries: No filling defects are seen in the pulmonary arteries out to the subsegmental ve ssels. The left and right pulmonary arteries are normal in diameter. Lung: There is mild increased density seen at the posterior lower lobes bilaterally likely related t o consolidation or atelectasis. There is emphysematous change in the upper lungs. Effusion: None. Mediastinum: No evidence of mediastinal or hilar adenopathy. Coronary artery calcifications are pres ent. Other: The axilla is unremarkable. There is a 1.1 cm hypodensity in the superior aspect of the later al segment the left lobe of the liver and a 0.6 cm hypodensity in the superior aspect of the posterio r segment of the right lobe of the liver likely related to cysts or hemangiomas. CONCLUSION: 1. No pulmonary embolus. 2. Mild density in the posterior lower lobes likely related to consolidation or atelectasis. Electronically signed by: Fahad Rios MD 03/05/2018 11:33 AM EDT
[2018-03-05] MEDS ORDERED: Enoxaparin Inj 80 MG/0.8 ML Syringe SQ ONE (12:06)
[2018-03-05] MEDS ORDERED: Morphine Inj 4 MG/ML Vial IV.PUSH PRN (12:21)
--- NOTE | 2018-03-05 12:25 | ECG ---
Date Performed: 03/05/2018 Time Performed: 09:42:22 PTAGE: 73 years EKG: ATRIAL FIBRILLATION WITH RAPID VENTRICULAR RESPONSE NONSPECIFIC ST & T-WAVE ABNORMALITY ABN ORMAL RHYTHM ECG INTERPRETATION BASED ON A DEFAULT AGE OF 40 YEARS PREVIOUS TRACING : 03/29/2015 14.21 DOCTOR: Fay Wells Interpretating Date/Time 03/05/2018 12:23:59
--- NOTE | 2018-03-05 12:35 | P.HPIM ---
History of Present Illness Primary Care Physician: Brian Arshad MD Chief Complaint: chest pain History of Present Illness: patient is a 73 y/o male with history of CAD- s/p angioplasty years ago, hypertension, COPD-on home oxygen, CVA, presented to ER with chest pain. he says that the pain started around eight this morning when he was watching TV. pain was midsternal and pressure-type. he says that he felt some discomfort on the left jaw. he had some nausea but with no emesis.he denies any diaphoresis or worsening sob. he says that the pain subsided after he received Morphine in ER.he says that he had a stress test this year which was reportedly negative. Review of Systems All other systems reviewed negative except as stated in HPI PMFSH - History History Provided By: Patient - Medical History Medical History: Medical History (Last Reviewed 03/05/18 @ 12:30 by Sunday Chirinos MD) COPD (chronic obstructive pulmonary disease) Hypertension - Surgical History Surgical History: Surgical History (Last Reviewed 03/05/18 @ 12:31 by Sunday Chirinos MD) Coronary angioplasty status H/O foot surgery - Family History Family History: Family History (Last Reviewed 03/05/18 @ 12:31 by Sunday Chirinos MD) Other Heart disease - Tobacco History Smoking Status: Former smoker - Alcohol History How Often Do You Have a Drink Containing Alcohol: Never - Substance Use History Substance History: No History of Abuse - Travel History Recent Travel in the [place] Within the Last 8 Weeks: No Recent Travel Out of the Country Within the Last 8 Weeks: No - Immunization History Tetanus Immunization: <5 Years Medications and Allergies Active Medications: Active Medications Aspirin (Ecotrin) 81 mg PO DAILY URIAH Metoprolol Tartrate (Lopressor) 25 mg PO BID URIAH Morphine Sulfate (Morphine Inj) 2 mg IV.PUSH Q4H PRN PRN Reason: chest pain Sodium Chloride (Ns Flush) 2 ml IV.FLUSH UNSCH PRN PRN Reason: FLUSH AFTER USING IV ACCESS Allergies Allergy/AdvReac Type Severity Reaction Status Date / Time No Known Allergies Allergy NKDA Uncoded 03/05/18 09:47 Home Medications Medication Instructions Recorded Confirmed Type albuterol sulfate [ProAir HFA] 2 puff INHALATION Q4-6H PRN 02/11/18 03/05/18 History amlodipine 10 mg PO DAILY 02/11/18 03/05/18 History aspirin [Aspirin Low Dose] 81 mg PO DAILY 03/05/18 03/05/18 History Exam Vital signs: Vital Signs 03/05/18 09:43 03/05/18 09:48 03/05/18 11:03 Pulse Rate 117 H 112 H 105 H Respiratory Rate 18 18 20 Blood Pressure 138/94 H 137/89 Pulse Oximetry 99 99 98 Intake & Output 03/04/18 03/05/18 03/05/18 18:59 06:59 18:59 Weight 81.647 kg - Constitutional no acute distress - Routine HEENT Exam Eye: Present: PERRL - Routine Neck Exam Present: supple - Routine Respiratory Exam Present: CTA bilaterally - Routine Cardiovascular Exam Present: tachycardia, irregularly irregular - Routine Abdominal Exam Present: soft - Routine Extremities Exam Comments: no pedal edema. - Routine Neurological Exam Present: alert, oriented X3 Results - Labs CBC & Chem 7: 03/05/18 09:54 03/05/18 09:54 Labs: Short CBC 03/05/18 Range/Units 09:54 WBC 9.0 (4.0-11.0) th/mm3 Hgb 18.3 H (13.0-17.0) gm/dL Hct 56.7 H (39.0-51.0) % Plt Count 118 L (150-450) th/mm3 BMP 03/05/18 09:54 Sodium 141 Potassium 3.8 Chloride 101 Carbon Dioxide 30.0 BUN 25 H Creatinine 1.57 H Calcium 8.5 Cardiac Enzymes 03/05/18 Range/Units 09:54 Total Creatine Kinase 196 (39-308) U/L CK-MB (CK-2) 2.6 (0.5-3.6) ng/mL Troponin I Less than 0.02 L (0.02-0.05) ng/mL Liver Function 03/05/18 Range/Units 09:54 Total Bilirubin 0.5 (0.2-1.0) mg/dL AST 35 (15-37) U/L ALT 57 (12-78) U/L Alkaline Phosphatase 84 (45-117) U/L Albumin 3.1 L (3.4-5.0) g/dL - Imaging Impressions Chest CTA 03/05/18 09:46 CONCLUSION: 1. No pulmonary embolus. 2. Mild density in the posterior lower lobes likely related to consolidation or atelectasis. Chest X-Ray 03/05/18 09:46 CONCLUSION: No acute cardiopulmonary process. Caprini VTE Risk Assessment Caprini VTE Risk Assessment: Moderate/High Risk (score >= 2) Caprini Risk Assessment Model: Point Value = 1 Point Value = 2 Point Value = 3 Point Value = 5 Age 41-60 Minor surgery BMI > 25 kg/m2 Swollen legs Varicose veins or History of unexplained or recurrent spontaneous Oral contraceptives or hormone replacement Sepsis (< 1 month) Serious lung disease, including pneumonia (< 1 month) Abnormal pulmonary function Acute myocardial infarction Congestive heart failure (< 1 month) History of inflammatory bowel disease Medical patient at bed rest Age 61-74 Arthroscopic surgery Major open surgery (> 45 min) Laparoscopic surgery (> 45 min) Malignancy Confined to bed (> 72 hours) Immobilizing plaster cast Central venous access Age >= 75 History of VTE Family history of VTE Factor V Leiden Prothrombin [id number] Lupus anticoagulant Anticardiolipin antibodies Elevated serum homocysteine Heparin-induced thrombocytopenia Other congenital or acquired thrombophilia Stroke (< 1 month) Elective arthroplasty Hip, pelvis, or leg fracture Acute spinal cord injury (< 1 month) Prophylaxis Regimen: Total Risk Factor Score Risk Level Prophylaxis Regimen 0-1 Low Early ambulation 2 Moderate Order ONE of the following: *Sequential Compression Device (SCD) *Heparin 5000 units SQ BID 3-4 Higher Order ONE of the following medications: *Heparin 5000 units SQ TID *Enoxaparin/Lovenox 40 mg SQ daily (WT < 150 kg, CrCl > 30 mL/min) *Enoxaparin/Lovenox 30 mg SQ daily (WT < 150 kg, CrCl > 10-29 mL/min) *Enoxaparin/Lovenox 30 mg SQ BID (WT < 150 kg, CrCl > 30 mL/min) AND/OR *Sequential Compression Device (SCD) 5 or more Highest Order ONE of the following medications: *Heparin 5000 units SQ TID (Preferred with Epidurals) *Enoxaparin/Lovenox 40 mg SQ daily (WT < 150 kg, CrCl > 30 mL/min) *Enoxaparin/Lovenox 30 mg SQ daily (WT < 150 kg, CrCl > 10-29 mL/min) *Enoxaparin/Lovenox 30 mg SQ BID (WT < 150 kg, CrCl > 30 mL/min) AND *Sequential Compression Device (SCD) Assessment and Plan - Plan A/P - chest pain with history of CAD and angioplasty continue with aspirin- continue to trend the cardiac enzymes - will consult cardiology -a-fib- mildly tachycardic- new-onset start on Metoprolol and subq Lovenox- check echo/ TSH and consult Cardiology. patient was being followed up by [facility]-however was consulted as the patient and her 's request. -COPD with no exacerbation continue with oxygen and neb treatment as needed; patient is on home oxygen. -Hypertension; hold Amlodipine and start on Metoprolol- continue to monitor and adjust the regimen as needed. -history of CVA; continue aspirin -CKD- at his baseline- will monitor -DVT prophylaxis with subq Lovenox Discussed Condition With: ER physician, the patient, his and RN.
[2018-03-05] MEDS: Metoprolol Tartrate 25 MG Tablet PO SCH ×2 (12:37→22:13)
[2018-03-05] MEDS: Sodium Chlor 0.9% Inj 500 ML IV.CONT SCH (15:54)
--- NOTE | 2018-03-05 16:09 | MB ---
cc: Eli Meza MD DATE: 03/05/2018 HISTORY OF PRESENT ILLNESS: This is a 73-year-old male, history of COPD, who just recently started on home oxygen, hypertension, and hyperlipidemia said he had a heart catheterization over 9 years ago. He was not sure what happened at that time, but denied any stenting, but they said they took a look maybe have cleaned up something. The patient came to the hospital because he had some right-sided chest discomfort and jaw discomfort. Found to be in atrial fibrillation with heart rate controlled. I do not have enzymes so far. Somewhat active, but gets short of breath very easily. Utilizing 3 pillows under his head. Gets paroxysmal nocturnal dyspnea. No edema. No claudication. Walks about half a block at a time, but gets short of breath and stops. No syncope or presyncope. Somewhat dizzy on and off. No palpitations. PAST MEDICAL HISTORY: As above and seem that he has prostatic disease also. PAST SURGICAL HISTORY: Foot surgery. He had radiation in the past for cancer. ALLERGIES: NO KNOWN DRUG ALLERGIES. MEDICATIONS: See chart. FAMILY HISTORY: Noncontributory. REVIEW OF SYSTEMS: Essentially as above. The patient was playing [employer] on his phone and somewhat too busy even to talk to me because he was so busy playing the game. Comfortable, not in any acute distress and when I stressed to him that we have to talk, he just stopped playing his game and started discussing his situation. PHYSICAL EXAMINATION: GENERAL: Alert, oriented, cooperative, not in any acute distress. VITAL SIGNS: His vitals are stable. Heart rate in the 60s. HEENT: Unremarkable. HEART: S1, S2. Distant heart sounds. No murmur, no gallop, no rub. LUNGS: Clear to percussion and auscultation. ABDOMEN: No organomegaly, no masses. EXTREMITIES: No edema. DIAGNOSTIC DATA: ECG: Atrial fibrillation with no acute changes. Chest x-ray, no acute changes. IMPRESSION AND PLAN: Atypical chest pain, possible new onset atrial fibrillation. We will need anticoagulation in this patient. Followup enzymes and echocardiogram. If enzymes are negative, the echo with no issues, could possibly be discharged home at that time for followup as an outpatient with Dr. Zamorano as his molecular geneticist. Thank you for consultation. ADDENDUM LABORATORY DATA: His last creatinine 1.52, BUN 25. Troponin x2 negative. BNP trivially elevated at 172. His white count 9 and hemoglobin 18.3 and platelets 118. So again, the patient already on Lovenox and echo is pending. If echo is okay and possibly could be discharged home on Eliquis for followup with Dr. Zamorano. Eliquis possibly dose will be 2.5 mg twice a day. Eli Meza MD ALISA/sv , 02:54 PM , 03:08 PM
[2018-03-06] MEDS: Enoxaparin Inj 80 MG/0.8 ML Syringe SQ SCH ×2 (00:12→09:47)
[2018-03-06] MEDS: Sodium Chlor 0.9% Inj 500 ML IV.CONT SCH ×2 (00:19→00:54)
[2018-03-06] MEDS ORDERED: Enoxaparin Inj 40 MG/0.4 ML Syringe SQ SCH (00:30)
[2018-03-06 07:21] LABS: Baso % (Auto) 0.1 % (0.0-2.0); Eos % (Auto) 0.6 % (0.0-4.0); Hemoglobin 17.5 gm/dL (13.0-17.0); Lymph # (Auto) 0.9 th/mm3 (1.0-4.8); Lymph % (Auto) 12.7 % (9.0-44.0); Mean Corpuscular HGB Conc 31.8 % (32.0-36.0); Mean Corpuscular Hemoglobin 23.7 pg (27.0-34.0); Mean Corpuscular Volume 74.5 fL (80.0-100.0); Mean Platelet Volume 8.6 fL (7.0-11.0); Mono # (Auto) 0.9 th/mm3 (0.0-0.9); Mono % (Auto) 12.6 % (0.0-8.0); Neut # (Auto) 5.3 th/mm3 (1.8-7.7); Platelet Count 106 th/mm3 (150-450); Red Blood Count 7.39 mil/mm3 (4.50-5.90); Red Cell Distribution Width 17.9 % (11.6-17.2); White Blood Count 7.1 th/mm3 (4.0-11.0)
[2018-03-06 07:49] LABS: Calcium 8.9 mg/dL (8.5-10.1); Carbon Dioxide 33.8 meq/L (21.0-32.0); Potassium 4.3 meq/L (3.5-5.1)
--- NOTE | 2018-03-06 08:17 | P.PNIM ---
Subjective Interval history: f/u; chest pain/ a-fib in no acute distress. no chest pain or sob. hoping that he'd go home today. Physical Exam Vital signs: Vital Signs 03/05/18 09:43 03/05/18 09:48 03/05/18 11:03 Temperature Pulse Rate 117 H 112 H 105 H Respiratory Rate 18 18 20 Blood Pressure 138/94 H 137/89 Pulse Oximetry 99 99 98 03/05/18 13:27 03/05/18 16:00 03/05/18 19:25 Temperature 97.5 F L 97.4 F L 97.9 F Pulse Rate 91 H 73 70 Respiratory Rate 16 14 18 Blood Pressure 136/95 H 119/94 H 126/71 Pulse Oximetry 99 99 95 03/05/18 23:30 03/06/18 03:22 03/06/18 08:05 Temperature 97.9 F 97.8 F 97.6 F Pulse Rate 69 66 63 Respiratory Rate 19 20 20 Blood Pressure 122/81 118/79 142/83 H Pulse Oximetry 98 100 97 Intake & Output 03/05/18 03/06/18 03/06/18 18:59 06:59 18:59 Intake Total 500 / 500 500 / 500 Output Total 600 / 600 Balance -100 / -100 500 / 500 Weight 81.647 kg 81.647 kg Intake: IV 500 / 500 NS Inj 500 ML @ 50 mls/hr IV. 500 / 500 CONT .Q10H URIAH Rx#:[id number] Oral 500 / 500 Output: Urine 600 / 600 Other: Post Void Residual 0 # Voids 2 # Bowel Movements 0 # Incontinent Bowel Movements 0 Weight On Admission 81.647 kg - Constitutional no acute distress - Routine Respiratory Exam Present: CTA bilaterally - Routine Cardiovascular Exam Present: RRR - Routine Abdominal Exam Present: soft - Routine Extremities Exam Comments: no pedal edema. - Routine Neurological Exam Present: alert, oriented X3 Results - Labs CBC & Chem 7: 03/06/18 06:29 03/06/18 06:29 Laboratory Results - last 24 hr 03/05/18 03/05/18 03/05/18 09:54 09:54 09:54 WBC 9.0 RBC 7.59 H Hgb 18.3 H Hct 56.7 H MCV 74.7 L MCH 24.1 L MCHC 32.2 RDW 18.0 H Plt Count 118 L MPV 8.5 Prelim Diff (Auto) Slide review pending Neut % (Auto) 69.6 Lymph % (Auto) 14.2 Kershaw % (Auto) 15.3 H Eos % (Auto) 0.6 Baso % (Auto) 0.3 Neut # (Auto) 6.2 Lymph # (Auto) 1.3 [place] # (Auto) 1.4 H Eos # (Auto) 0.1 Baso # (Auto) 0.0 WBC Differential Manual diff final Seg Neuts % (Manual) 69 Band Neuts % (Manual) 2 Lymphocytes % (Manual) 17 Monocytes % (Manual) 9 H Eosinophils % (Manual) 1 Myelocytes % (Man) 2 H Abs Neuts (Manual) 6.6 Differential Comment . Platelet Estimate Low L Platelet Morphology Normal Sodium 141 Potassium 3.8 Chloride 101 Carbon Dioxide 30.0 Anion Gap 10 BUN 25 H Creatinine 1.57 H Estimated GFR 53 L Random Glucose 55 L Calcium 8.5 Total Bilirubin 0.5 AST 35 ALT 57 Alkaline Phosphatase 84 Total Creatine Kinase 196 CK-MB (CK-2) 2.6 Troponin I Less than 0.02 L B-Natriuretic Peptide 172 H Total Protein 7.0 Albumin 3.1 L Lipase 67 L TSH 03/05/18 03/05/18 03/05/18 12:53 12:53 19:07 WBC RBC Hgb Hct MCV MCH MCHC RDW Plt Count MPV Prelim Diff (Auto) Neut % (Auto) Lymph % (Auto) [place] % (Auto) Eos % (Auto) Baso % (Auto) Neut # (Auto) Lymph # (Auto) [place] # (Auto) Eos # (Auto) Baso # (Auto) WBC Differential Seg Neuts % (Manual) Band Neuts % (Manual) Lymphocytes % (Manual) Monocytes % (Manual) Eosinophils % (Manual) Myelocytes % (Man) Abs Neuts (Manual) Differential Comment Platelet Estimate Platelet Morphology Sodium Potassium Chloride Carbon Dioxide Anion Gap BUN Creatinine Estimated GFR Random Glucose Calcium Total Bilirubin AST ALT Alkaline Phosphatase Total Creatine Kinase CK-MB (CK-2) Troponin I 0.02 Less than 0.02 L B-Natriuretic Peptide Total Protein Albumin Lipase TSH 1.310 03/06/18 03/06/18 06:29 06:29 WBC 7.1 RBC 7.39 H Hgb 17.5 H Hct 55.0 H MCV 74.5 L MCH 23.7 L MCHC 31.8 L RDW 17.9 H Plt Count 106 L MPV 8.6 Prelim Diff (Auto) Slide review pending Neut % (Auto) 74.0 H Lymph % (Auto) 12.7 [place] % (Auto) 12.6 H Eos % (Auto) 0.6 Baso % (Auto) 0.1 Neut # (Auto) 5.3 Lymph # (Auto) 0.9 L [place] # (Auto) 0.9 Eos # (Auto) 0.0 Baso # (Auto) 0.0 WBC Differential Seg Neuts % (Manual) Band Neuts % (Manual) Lymphocytes % (Manual) Monocytes % (Manual) Eosinophils % (Manual) Myelocytes % (Man) Abs Neuts (Manual) Differential Comment . Platelet Estimate Platelet Morphology Sodium 143 Potassium 4.3 Chloride 102 Carbon Dioxide 33.8 H Anion Gap 7 BUN 23 H Creatinine 1.37 H Estimated GFR 62 L Random Glucose 83 Calcium 8.9 Total Bilirubin AST ALT Alkaline Phosphatase Total Creatine Kinase CK-MB (CK-2) Troponin I B-Natriuretic Peptide Total Protein Albumin Lipase TSH - Imaging Impressions Chest CTA 03/05/18 09:46 CONCLUSION: 1. No pulmonary embolus. 2. Mild density in the posterior lower lobes likely related to consolidation or atelectasis. Chest X-Ray 03/05/18 09:46 CONCLUSION: No acute cardiopulmonary process. Assessment and Plan - Plan A/P - chest pain with history of CAD and angioplasty cardiac enzymes negative and currently chest pain free. cardiology consult appreciated; f/u as outpatient. -a-fib- new-onset; HR controlled. started on Metoprolol and subq Lovenox- echo pending- will switch to Eliquis upon discharge pending echo. cardiology consult appreciated; f/u as outpatient. -COPD with no exacerbation continue with oxygen and neb treatment as needed; patient is on home oxygen. -Hypertension; hold Amlodipine and started on Metoprolol- -history of CVA; on aspirin/ will switch to eliquis upon discharge. -CKD- at his baseline- will monitor -DVT prophylaxis with subq Lovenox Discharge Planning: possible dc home later today- when echo is resulted.
[2018-03-06 08:50] LABS: Lymphocytes 20 % (9-44); Monocytes 10 % (0-8); Platelet Morphology Normal (Normal); Promyelocyte 1 % (0-0); Tallied Nucleated RBC 1 (0-0)
[2018-03-06] MEDS: Metoprolol Tartrate 25 MG Tablet PO SCH (09:46)
--- NOTE | 2018-03-06 11:03 | ECG ---
Date Performed: 03/05/2018 Time Performed: 14:14:58 PTAGE: 73 years EKG: ATRIAL FIBRILLATION POSSIBLE RIGHT VENTRICULAR CONDUCTION DELAY NONSPECIFIC T-WAVE ABNORMAL ITY ABNORMAL RHYTHM ECG Compared to PREVIOUS TRACING the patient is no longer tachycardic PREVIOUS TRACIN03/03/2018 11.30 DOCTOR: Marci Mallory Interpretating Date/Time 03/06/2018 11:01:52
--- NOTE | 2018-03-06 11:20 | ECG ---
Date Performed: 03/05/2018 Time Performed: 16:57:11 PTAGE: 73 years EKG: ATRIAL FIBRILLATION POSSIBLE RIGHT VENTRICULAR CONDUCTION DELAY ST ELEVATION, CONSIDER ANTE RIOR INJURY ACUTE AR Since the PREVIOUS TRACING , no significant change noted PREVIOUS TRACIN03/05/18 DOCTOR: Marci Mallory Interpretating Date/Time 03/06/2018 11:19:16
[2018-03-06 11:45] VITALS: BP 129/75; PULSE 67; RESP 18; TEMP 98; O2SAT 99
--- NOTE | 2018-03-06 12:57 | ECHRPT ---
Indication: ATRIAL FIB/FLUTTER CONCLUSIONS Normal left ventricular size. Mild concentric left ventricular hypertrophy. Wall thickness is measured at the upper limits of normal. The left ventricular systolic function is normal with an ejection fraction of 60-65%. There is mild tricuspid valve regurgitation. The estimated pulmonary arterial pressure is 34.4 mmHg. Mild pulmonary valve regurgitation. BP: / HR: Rhythm: Atrial fibrillation MEASUREMENTS (Male / Female) Normal Values Technical Quality:Very technically difficult study 2D ECHO LV Diastolic Diameter PLAX 4.4 cm 4.2 - 5.9 / 3.9 - 5.3 cm LV Systolic Diameter PLAX 3.2 cm IVS Diastolic Thickness 1.1 cm 0.6 - 1.0 / 0.6 - 0.9 cm LVPW Diastolic Thickness 1.1 cm 0.6 - 1.0 / 0.6 - 0.9 cm LV Relative Wall Thickness 0.5 RV Internal Dim ED PLAX 1.9 cm LVOT Diameter 2.2 cm Aortic Root Diameter 3.1 cm M-MODE AV Cusp Separation MM 2.0 cm DOPPLER TR Peak Velocity 247.0 cm/s TR Peak Gradient 24.4 mmHg Right Atrial Pressure 10.0 mmHg Pulmonary Artery Systolic Pressu 34.4 mmHg Right Ventricular Systolic Press 34.4 mmHg PV Peak Velocity 53.4 cm/s PV Peak Gradient 1.1 mmHg FINDINGS LEFT VENTRICLE Normal left ventricular size. Mild concentric left ventricular hypertrophy. Wall thickness is measured at the upper limits of normal. RIGHT VENTRICLE Normal right ventricular size and systolic function. LEFT ATRIUM The left atrial size is normal. RIGHT ATRIUM The right atrial size is normal. ATRIAL SEPTUM No atrial level shunt is demonstrated by color flow Doppler interrogation. AORTA The aortic root and proximal ascending aorta are not well visualized. MITRAL VALVE The mitral valve is not well visualized. AORTIC VALVE Trileaflet aortic valve. No aortic valve stenosis or regurgitation. TRICUSPID VALVE There is mild tricuspid valve regurgitation. The estimated pulmonary arterial pressure is 34.4 mmHg. PULMONARY VALVE Mild pulmonary valve regurgitation. VESSELS The inferior vena cava was not well visualized. PERICARDIUM No pericardial effusion. Bernadette King MD (Electronically Signed) Final Date:06 March 2018 12:56
== END 2018-03-06 13:27 | disposition home or self-care (01) ==
LOC: NEDA 09:40 → NEPE 09:40 → NEDA 13:00 → NEPGCP 13:02
PROVIDERS: ADMIT Internal Medicine; ATTEND Internal Medicine